=== PATIENT | female | born 1980 | race African-American/Black ===

== ENCOUNTER 2019-09-22 23:56 | Emergency (ER) | payer OTHER ==
[~2019-09-22] VITALS: Ht 170.2 cm; Wt 149.7 kg
[2019-09-23 00:29] LABS: URINE BILIRUBIN NEGATIVE (Negative); URINE BLOOD 3+ (Negative); URINE CLARITY CLEAR; URINE COLOR YELLOW; URINE GLUCOSE-RANDOM* 3+ (Negative); URINE KETONES TRACE (Negative); URINE LEUKOCYTES-REFLEX NEGATIVE (Negative); URINE NITRITE-REFLEX NEGATIVE (Negative); URINE PROTEIN (DIPSTICK) NEGATIVE (Negative)
[2019-09-23 00:37] LABS: CASTS None Seen /LPF (None Seen); MUCUS 0-3 Light strn/LPF (None Seen); SQUAMOUS 0-3 Few /LPF (0-3); URINE RBC 3-10 Few /HPF (0-2); URINE WBC-REFLEX 0-5 Rare /HPF (0-5)
[2019-09-23 00:38] LABS: BACTERIA-REFLEX 1-9 Few /HPF (None Seen); CRYSTALS None Seen /LPF (None Seen)
[2019-09-23 00:42] LABS: ABSOLUTE NEUTROPHILS 9.9 thou/uL (1.4-8.2); BASOPHILS 0.3 % (0.0-2.0); EOSINOPHILS 0.3 % (0.0-3.0); HEMATOCRIT 33.8 % (37.0-47.0); HEMOGLOBIN 11.1 gm/dL (12.0-15.0); LYMPHOCYTES 8.3 % (24.0-44.0); MCH 27.6 pg (26.0-34.0); MCHC 32.7 g/dL (28.0-37.0); MCV 84.3 fL (80.0-100.0); MONOCYTES 1.5 % (1.0-8.0); PLATELET COUNT 386 thou/uL (150-400); POLYS 89.6 % (36.0-66.0); RBC 4.01 mil/uL (4.20-5.00); RDW 14.5 % (10.5-14.5)
[2019-09-23] MEDS ORDERED: METFORMIN HCL500 M3 PO (00:45)
[2019-09-23] MEDS ORDERED: INDAPAMIDE2.5 MG PO (00:46)
[2019-09-23] MEDS ORDERED: GLIMEPIRIDE1 MG PO (00:46)
[2019-09-23 00:59] LABS: ANION GAP 12 mmol/L (7-16); BUN 12 mg/dL (7-18); CALCIUM 8.5 mg/dL (8.5-10.1); CHLORIDE 98 mmol/L (98-107); CO2 25 mmol/L (21-32); CREATININE 0.8 mg/dL (0.6-1.0); GLUCOSE 339 mg/dL (74-106); POTASSIUM 3.9 mmol/L (3.5-5.1); SODIUM 135 mmol/L (136-145)
[2019-09-23 01:05] LABS: ALBUMIN 3.8 g/dL (3.4-5.0); DIRECT BILIRUBIN < 0.1 mg/dL (<0.1-0.2); LIPASE 227 U/L (73-393); SGOT 19 U/L (15-37); SGPT 28 U/L (30-65); TOTAL BILIRUBIN 0.3 mg/dL (0.2-1.0); TOTAL PROTEIN 8.1 g/dL (6.4-8.2)
[2019-09-23] MEDS ORDERED: CARAFATE1 GM PO ×2 (02:38→02:59)
[2019-09-23] MEDS ORDERED: ZOFRAN ODT4 MG PO ×2 (02:38→02:59)
[2019-09-23 02:56] VITALS: BP 159/82
== END 2019-09-23 03:01 | disposition home or self-care (01) ==
LOC: ER 23:56
PROVIDERS: Emergency Medicine
DX: K29.70 Gastritis, unspecified, without bleeding (principal); E11.42 Type 2 diabetes mellitus with diabetic polyneuropathy; R11.10 Vomiting, unspecified; I10 Essential (primary) hypertension; Z79.899 Other long term (current) drug therapy